=== PATIENT | male | born 1950 | race Hispanic/Latino ===

== ENCOUNTER → 2018-07-30 | Day surgery (SDC) | payer MEDICARE ==
[2018-07-22 16:41] LABS: BASOPHILS # (AUTO) 0.1 (0.0-0.1); EOSINOPHILS # (AUTO) 0.1 (0.0-0.4); EOSINOPHILS % 1.5 % (0.0-6.0); HEMATOCRIT 44.1 % (38.2-49.6); HEMOGLOBIN 14.6 g/dL (14.0-18.0); LYMPHOCYTES # (AUTO) 1.9 (1.0-3.2); LYMPHOCYTES % 24.7 % (18.0-39.1); MEAN CORPUSCULAR HEMOGLOBIN 31.6 pg (28-32); MEAN CORPUSCULAR HGB CONC 33.1 g/dL (31-35); MEAN CORPUSCULAR VOLUME 95.5 fL (81-99); MONOCYTES # (AUTO) 0.7 (0.2-0.8); MONOCYTES % 8.8 % (4.4-11.3); NEUTROPHILS % 63.7 % (38.7-80.0); PLATELET COUNT 244 x10e3/uL (140-360); RED BLOOD COUNT 4.62 x10e6/uL (4.3-5.7); RED CELL DISTRIBUTION WIDTH 12.9 % (11.7-14.4)
[2018-07-22 17:03] LABS: ANION GAP 11.6 mmol/L (8-16); BLOOD UREA NITROGEN 17 mg/dL (7-26); BUN/CREATININE RATIO 15 (6-25); CALCIUM 10.7 mg/dL (8.4-10.2); CARBON DIOXIDE 28 mmol/L (22-29); CHLORIDE 102 mmol/L (98-107); CREATININE, SERUM 1.11 mg/dL (0.72-1.25); EST GLOMERULAR FILTRATION RATE > 60 ML/MIN (60-); GLUCOSE 79 mg/dL (74-118); POTASSIUM 4.6 mmol/L (3.5-5.1); SODIUM 137 mmol/L (136-145)
--- NOTE | 2018-07-22 18:06 | Diagnostic Imaging Report ---
EXAMINATION: CHEST 2 VIEWS INDICATION: PREOP COMPARISON: None FINDINGS: TUBES and LINES: None. LUNGS: Bibasilar subsegmental atelectasis. Findings There is no evidence of pneumonia or pulmonary edema. PLEURA: No pleural effusion or pneumothorax. HEART AND MEDIASTINUM: The cardiomediastinal silhouette is unremarkable. BONES AND SOFT TISSUES: There are degenerative changes in the thoracic spine. Soft tissues are unremarkable. UPPER ABDOMEN: No free air under the diaphragm. IMPRESSION: Bibasilar subsegmental atelectasis. Signed by: Dr. Yashira Mcdaniel M.D. on 07/22/2018 6:03 PM
[~2018-07-30] MED LIST: ACETAMINOPHEN 1000 MG/100 ML 100 ML IV ONE; DESFLURANE 240 ML BTL INH ONE; FENTANYL CITRATE/PF 100MCG/2 ML INJ ONE; GLIMEPIRIDE2 MG PO; GLYCOPYRROLATE INJ 1MG/ 5 ML SYR ONE; KETAMINE HCL INJ 50 MG/ML 10 ML VIAL ONE; LIDOCAINE HCL 2% LOCAL INJ 5 ML SDV VIAL INJ ONE; LOSARTAN POTASS25 MG PO; LOVASTATIN20 MG PO; METFORMIN HCL500 MG PO; NEOSTIGMINE 5 MG/5ML SYR ONE; OXYMETAZOLINE HCL 0.05% NAS 1 SPRAY BTL ONE; PROPOFOL IV EMULSION 10 MG/ML 20 ML VIAL ONE; ROCURONIUM BROMIDE 10 MG/ML 5ML VIAL ONE
--- OUTSIDE RECORDS SUMMARY | 2018-07-30 05:34 | XMS REPORT ---
Author Author [facility] Address Unknown Phone Unavailable Care Team Providers Care Steward/[employer] Name Role Phone NINO RAFI Unavailable Unavailable Problems This patient has no known problems. Allergies, Adverse Reactions, Alerts This patient has no known allergies or adverse reactions. Medications This patient has no known medications. Results Test Description Test Time Test Comments Text Results Atomic Results Result Comments CHEST 2 VIEWS 2018-07-22 18:00:00 [facility] [address] [address] Patient Name: LAVELL ZENG MR #: [id number] : 1950 Age/Sex: 68/M Req #: [id number] Adm Physician: Ordered by: NINO ESQUIVEL, RAFI ESQUIVEL Report #: [id number] Location: OR Room/Bed: Procedure: [id number] DX/CHEST 2 VIEWS Exam Date: 07/22/18 Exam Time: 1722 REPORT STATUS: Signed EXAMINATION: CHEST 2 VIEWS INDICATION: PREOP COMPARISON: None FINDINGS: TUBES and LINES: None. LUNGS: Bibasilar subsegmental atelectasis. Findings There is no evidence of pneumonia or pulmonary edema. PLEURA: No pleural effusion or pneumothorax. HEART AND MEDIASTINUM: The cardiomediastinal silhouette is unremarkable. BONES AND SOFT TISSUES: There are degenerative changes in the thoracic spine. Soft tissues are unremarkable. UPPER ABDOMEN: No free air under the diaphragm. IMPRESSION: Bibasilar subsegmental atelectasis. Signed by: Dr. Yashira Koehler M.D. on 07/22/2018 6:03 PM Dictated By: MAIA KOEHLER MD, MD 02 Transcribed By: DOMINGO on 07/22/181802 COPY TO: RAFI ONEILL
[2018-07-30 09:15] VITALS: BP 129/70
--- NOTE | 2018-07-30 14:55 | Operative Report ---
DATE OF PROCEDURE: 07/30/2018 SURGEON: Arnulfo Donohue MD PREOPERATIVE DIAGNOSES: Hoarseness, irregular/abnormal left true vocal cord mucosa. POSTOPERATIVE DIAGNOSES: Hoarseness, irregular/abnormal left true vocal cord mucosa. PROCEDURE PERFORMED: Direct operative microlaryngoscopy with operating microscope, biopsies of left true vocal cord mucosa. SIGNIFICANT FINDINGS: Abnormal left true vocal cord mucosa. Right true vocal cord appeared normal. STAFFING ASSISTANT: None. ANESTHESIA: General endotracheal tube anesthesia. SPECIMENS REMOVED: Left true vocal cord mucosa biopsies. ESTIMATED BLOOD LOSS: Less than 1 mL. COMPLICATIONS: None. INDICATIONS: The patient is a 68-year-old Latin-Turk[place] male with three months history of hoarseness, postnasal drip, globus sensation, throat pain. The patient has smoked for three years until he quit in 1989. He has had no previous throat or neck surgery. He has been refractory to ciprofloxacin. Flexible fiberoptic nasolaryngoscopy in the office revealed diffuse abnormal irregular erythematous mucosa with whitish lesions involving the entirety of the left true vocal cord. On examination, he has abnormal left true vocal cord mucosa involving the entirety of the cord. He is scheduled for direct operative microlaryngoscopy with operating microscope and biopsies of abnormal left true vocal cord mucosa under general anesthesia. Risks and complications of the procedures were thoroughly discussed with the patient and his and they include infection, bleeding, scarring, failure to improve, need for additional operations, damage to teeth, gums, tongue and lips, damage to the floor of mouth, damage to the throat, chronic pain, inability to smell or taste, possibility of malignancy and need for further surgery and treatment, permanent worsening of voice, need for blood transfusions, damage to surrounding nerves, blood vessels and muscles. They fully understand and gave consent. DESCRIPTION OF PROCEDURE: The patient was taken to the operating room and placed supine on the operating table where general anesthesia was achieved through orotracheal intubation. Eyes were taped. Shoulder roll was placed. Head and body were draped. Table was turned 90 degrees with the head towards the surgeon. The plastic mouth guard was then placed over the upper teeth as a protective measure. The Megha laryngoscope was then used to visualize the oropharynx, which appeared to be normal. The larynx was then visualized and the Megha laryngoscope was then placed into suspension on the Lieberman stand. Thorough evaluation of the epiglottis, hypopharynx, and the false cords revealed them to be normal. The right true vocal cord was also normal. Abnormal whitish scarred irregular mucosa was seen involving the entirety of the left true vocal cord. This was then biopsied at multiple locations and sent for permanent section analysis. Hemostasis was obtained with cottonoid pledgets soaked with Afrin, which were then removed. The Megha laryngoscope was then taken out of suspension and was removed without difficulty followed by removal of teeth guard revealing no trauma to the teeth, gums, tongue and lips. The patient was awakened in the operating room, extubated, and taken to the recovery room in good condition. Arnulfo Donohue MD JKY/MODL /[id number] MTDD
== END | disposition home or self-care (01) ==
LOC: OR 05:00
PROVIDERS: ATTEND Otolaryngology
DX: J38.3 Other diseases of vocal cords (principal); E11.9 Type 2 diabetes mellitus without complications; I10 Essential (primary) hypertension; E78.00 Pure hypercholesterolemia, unspecified; Z87.891 Personal history of nicotine dependence; R49.0 Dysphonia; R07.0 Pain in throat; Z01.810 Encounter for preprocedural cardiovascular examination; Z01.812 Encounter for preprocedural laboratory examination; Z01.811 Encounter for preprocedural respiratory examination; Z79.84 Long term (current) use of oral hypoglycemic drugs
CPT/HCPCS: 31536; 36415 ×2; 71046; 80048; 82948; 85025; 88305; 88342; 93005; J0131; J2001; J2704; J3490